=== PATIENT | male | born 1980 | race Caucasian/White ===

== ENCOUNTER 2025-05-18 18:37 | Emergency (ER) | payer MEDICAID ==
[~2025-05-18] VITALS: Ht 177.8 cm; Wt 91.0 kg
[~2025-05-18 18:37] MED LIST: LEVE1000 MT; PANT40TA51 PO
[2025-05-18 18:44] VITALS: O2SAT 100
[2025-05-18] MEDS: LEVETIRACETAM 500MG PREMIX 100 ML IV ONE (19:16)
[2025-05-18] MEDS: LORAZEPAM 2MG/ML UD SYRINGE IV NR (20:03)
[2025-05-18 20:08] VITALS: TEMP 37
[2025-05-18 20:13] LABS: BASOPHILS % 0.7 % (0.0-2.0); EOSINOPHILS % 3.4 % (0.0-5.0); HEMATOCRIT. 39.0 % (42.0-52.0); HEMOGLOBIN. 12.9 g/dL (14.0-18.0); LYMPHOCYTES % 19.6 % (20.0-50.0); MEAN PLATELET VOLUME 7.3 fl (7.4-10.4); MONOCYTES % 8.7 % (2.0-8.0); NEUTROPHILS % 67.6 % (40.0-76.0); PLATELET 223 x1000/uL (130-400); RED BLOOD CELL COUNT 4.84 mill/uL (4.7-6.1); RED CELL DISTRIBUTION WIDTH 14.2 % (11.6-14.6)
[2025-05-18 20:28] LABS: CREATININE 0.9 mg/dL (0.6-1.3); UREA NITROGEN BLOOD 7 mg/dL (9-23)
[2025-05-18 20:29] LABS: ETHANOL BLOOD < 10 mg/dL (<10); PROTEIN TOTAL 6.5 g/dL (6.0-8.3)
[2025-05-18 20:30] LABS: ASPARTATE AMINOTRANSFERASE 11 IU/L (<34); BILIRUBIN DIRECT < 0.1 mg/dL (<=3.0); BILIRUBIN TOTAL 0.4 mg/dL (0.1-1.0)
[2025-05-19 01:57] VITALS: BP 120/84; PULSE 76; RESP 14; O2SAT 99
== END 2025-05-19 02:47 ==
LOC: ER 18:37
DX: R56.9 Unspecified convulsions (principal); Z86.73 Personal history of transient ischemic attack (TIA), and cerebral infarction without residual deficits; Z88.0 Allergy status to penicillin; Z88.1 Allergy status to other antibiotic agents
CPT/HCPCS: 80076; 80048; 80320; 85025; 36415; 70450; 96365; 96375; 99291; 93005; J1953; J2060; G0480

== ENCOUNTER 2025-05-27 11:36 | Emergency (ER) | payer MEDICAID ==
[~2025-05-27] VITALS: Ht 180.3 cm; Wt 91.0 kg
[~2025-05-27 11:36] MED LIST changes: -PANT40TA51 PO
[2025-05-27 11:40] VITALS: O2SAT 99
[2025-05-27] MEDS: LEVETIRACETAM 500MG PREMIX 100 ML IV ONE (12:19)
[2025-05-27 12:25] LABS: BASOPHILS % 0.7 % (0.0-2.0); EOSINOPHILS % 3.9 % (0.0-5.0); HEMATOCRIT. 39.8 % (42.0-52.0); HEMOGLOBIN. 13.7 g/dL (14.0-18.0); LYMPHOCYTES % 25.3 % (20.0-50.0); MEAN PLATELET VOLUME 7.1 fl (7.4-10.4); MONOCYTES % 11.0 % (2.0-8.0); NEUTROPHILS % 59.1 % (40.0-76.0); PLATELET 228 x1000/uL (130-400); RED BLOOD CELL COUNT 5.06 mill/uL (4.7-6.1); RED CELL DISTRIBUTION WIDTH 14.7 % (11.6-14.6)
[2025-05-27 12:40] LABS: CREATININE 0.9 mg/dL (0.6-1.3); UREA NITROGEN BLOOD 14 mg/dL (9-23)
[2025-05-27 12:41] LABS: ETHANOL BLOOD < 10 mg/dL (<10)
[2025-05-27] MEDS ORDERED: KEPP500 MT (14:00)
[2025-05-27] MEDS: LEVETIRACETAM 500MG TABLET PO NR (14:44)
[2025-05-27 19:30] VITALS: BP 118/70; PULSE 94; RESP 15; TEMP 36.8; O2SAT 100
[2025-05-30] MEDS ORDERED: PANT40TA51 PO (15:12)
== END 2025-05-27 19:29 | disposition home or self-care (01) ==
LOC: ER 11:36
DX: G40.909 Epilepsy, unspecified, not intractable, without status epilepticus (principal); J45.909 Unspecified asthma, uncomplicated; Z59.00 Homelessness unspecified; Z99.3 Dependence on wheelchair; Z88.1 Allergy status to other antibiotic agents; Z88.0 Allergy status to penicillin
CPT/HCPCS: 80048; 80320; 85025; 36415; 96365; 99284; J1953; G0480

== ENCOUNTER 2025-05-28 01:56 | Emergency (ER) | payer MEDICAID ==
[~2025-05-28] VITALS: Ht 177.8 cm; Wt 81.0 kg
[~2025-05-28 01:56] MED LIST changes: +KEPP500 MT
[2025-05-28 01:59] VITALS: O2SAT 100
[2025-05-28] MEDS: LEVETIRACETAM 1000MG PREMIX 100 ML IV ONE (03:03)
[2025-05-28 07:38] VITALS: BP 107/67; PULSE 64; RESP 12; TEMP 36.8; O2SAT 96
[2025-05-30] MEDS ORDERED: PANT40TA51 PO (15:12)
== END 2025-05-28 08:03 ==
LOC: ER 01:56
DX: R56.9 Unspecified convulsions (principal); J45.909 Unspecified asthma, uncomplicated; Z88.0 Allergy status to penicillin; Z88.1 Allergy status to other antibiotic agents
CPT/HCPCS: 99284; 96374; J1953

== ENCOUNTER 2025-05-31 18:03 | Emergency (ER) | payer MEDICAID ==
[~2025-05-31] VITALS: Ht 177.8 cm; Wt 91.0 kg
[~2025-05-31 18:03] MED LIST changes: -KEPP500 MT; +PANT40TA51 PO
[2025-05-31 18:07] VITALS: O2SAT 99
[2025-05-31 18:51] LABS: BASOPHILS % 0.4 % (0.0-2.0); EOSINOPHILS % 4.6 % (0.0-5.0); HEMATOCRIT. 39.4 % (42.0-52.0); HEMOGLOBIN. 13.1 g/dL (14.0-18.0); LYMPHOCYTES % 17.3 % (20.0-50.0); MEAN PLATELET VOLUME 7.2 fl (7.4-10.4); MONOCYTES % 12.0 % (2.0-8.0); NEUTROPHILS % 65.7 % (40.0-76.0); PLATELET 218 x1000/uL (130-400); RED BLOOD CELL COUNT 4.93 mill/uL (4.7-6.1); RED CELL DISTRIBUTION WIDTH 14.3 % (11.6-14.6)
[2025-05-31] MEDS: LEVETIRACETAM 1000MG PREMIX 100 ML IV ONE (18:58)
[2025-05-31 19:09] LABS: CREATININE 1.0 mg/dL (0.6-1.3); ETHANOL BLOOD < 10 mg/dL (<10); UREA NITROGEN BLOOD 11 mg/dL (9-23)
[2025-05-31 20:38] LABS: CLARITY URINE CLEAR (CLEAR); COLOR URINE YELLOW (YELLOW); GLUCOSE URINE NEGATIVE (NEGATIVE); KETONES URINE NEGATIVE (NEGATIVE); LEUKOCYTE ESTERASE URINE NEGATIVE (NEGATIVE); NITRITE URINE NEGATIVE (NEGATIVE); OCCULT BLOOD URINE NEGATIVE (NEGATIVE); PH URINE 6.0 (4.5-8.0); PROTEIN URINE NEGATIVE (NEGATIVE); SPECIFIC GRAVITY URINE 1.022 (1.005-1.030); UROBILINOGEN URINE 0.2 E.U./dL (0.2-1.0)
[2025-05-31 20:43] LABS: *AMPHETAMINES SCREEN URINE NEGATIVE (NEGATIVE); *BARBITURATES SCREEN URINE NEGATIVE (NEGATIVE); *BENZODIAZEPINES SCREEN URINE NEGATIVE (NEGATIVE); *COCAINE SCREEN URINE NEGATIVE (NEGATIVE); METHADONE URINE SCREEN NEGATIVE (NEGATIVE); OPIATES URINE SCREEN NEGATIVE (NEGATIVE)
[2025-05-31 20:44] LABS: CANNABINOID URINE SCREEN NEGATIVE (NEGATIVE); ECSTASY MDMA SCREEN URINE NEGATIVE (NEGATIVE); PHENCYCLIDINE URINE SCREEN NEGATIVE (NEGATIVE)
[2025-06-01 01:03] VITALS: BP 116/71; PULSE 74; RESP 16; TEMP 36.9; O2SAT 100
== END 2025-06-01 01:22 ==
LOC: ER 18:03
DX: G40.909 Epilepsy, unspecified, not intractable, without status epilepticus (principal); J45.909 Unspecified asthma, uncomplicated; Z88.0 Allergy status to penicillin; Z88.1 Allergy status to other antibiotic agents; Z79.899 Other long term (current) drug therapy
CPT/HCPCS: 80305; 80048; 81003; 80320; 85025; 36415; 93005; 96365; 99284; J1953; G0480

== ENCOUNTER 2025-06-02 11:26 | Emergency (ER) | payer MEDICAID ==
[~2025-06-02] VITALS: Ht 172.7 cm; Wt 80.0 kg
[2025-06-02 11:31] VITALS: TEMP 98.4; O2SAT 99
[2025-06-02 14:46] LABS: BASOPHILS % 0.9 % (0.0-2.0); EOSINOPHILS % 8.2 % (0.0-5.0); HEMATOCRIT. 36.9 % (42.0-52.0); HEMOGLOBIN. 12.5 g/dL (14.0-18.0); LYMPHOCYTES % 37.3 % (20.0-50.0); MEAN PLATELET VOLUME 8.5 fl (7.4-10.4); MONOCYTES % 12.4 % (2.0-8.0); NEUTROPHILS % 41.2 % (40.0-76.0); PLATELET 213 x1000/uL (130-400); RED BLOOD CELL COUNT 4.61 mill/uL (4.7-6.1); RED CELL DISTRIBUTION WIDTH 14.5 % (11.6-14.6)
[2025-06-02 15:03] LABS: CREATININE 1.0 mg/dL (0.6-1.3); PROTEIN TOTAL 6.4 g/dL (6.0-8.3); UREA NITROGEN BLOOD 15 mg/dL (9-23)
[2025-06-02 15:05] LABS: ASPARTATE AMINOTRANSFERASE 15 IU/L (<34); BILIRUBIN TOTAL 0.3 mg/dL (0.1-1.0)
[2025-06-02] MEDS ORDERED: LEVETIRACETAM 500MG PREMIX 100 ML IV SCH (18:00)
[2025-06-02] MEDS: LEVETIRACETAM 1500MG PREMIX 100 ML IV SCH (18:28)
[2025-06-02 23:23] VITALS: BP 115/83; PULSE 80; RESP 18; O2SAT 100
== END 2025-06-02 23:30 | disposition admitted as inpatient to this hospital (09) ==
LOC: ER 11:39 → CMPBEDREQ 06-03 07:58
DX: R56.9 Unspecified convulsions (principal); R41.82 Altered mental status, unspecified; I67.82 Cerebral ischemia; Z88.0 Allergy status to penicillin; Z88.1 Allergy status to other antibiotic agents
CPT/HCPCS: 99285; 96365; 70450; 80053; 85025; 93005; J1953; A4606

== ENCOUNTER 2025-06-07 13:49 | Emergency (ER) | payer MEDICAID ==
[~2025-06-07] VITALS: Ht 175.3 cm; Wt 77.0 kg
[2025-06-07 13:51] VITALS: O2SAT 100
[2025-06-07 16:02] LABS: CREATININE 0.9 mg/dL (0.6-1.3); UREA NITROGEN BLOOD 9 mg/dL (9-23)
[2025-06-07 16:03] LABS: PROTEIN TOTAL 6.7 g/dL (6.0-8.3); TROPONIN I HIGH SENSITIVITY < 4 ng/L (3.0-53)
[2025-06-07 16:04] LABS: ASPARTATE AMINOTRANSFERASE 18 IU/L (<34); BILIRUBIN DIRECT < 0.1 mg/dL (<=3.0); BILIRUBIN TOTAL 0.3 mg/dL (0.1-1.0)
[2025-06-07 17:00] VITALS: TEMP 36.9
[2025-06-07 17:28] LABS: BASOPHILS % 0.3 % (0.0-2.0); EOSINOPHILS % 2.0 % (0.0-5.0); HEMATOCRIT. 40.0 % (42.0-52.0); HEMOGLOBIN. 13.2 g/dL (14.0-18.0); LYMPHOCYTES % 12.8 % (20.0-50.0); MEAN PLATELET VOLUME 7.1 fl (7.4-10.4); MONOCYTES % 6.5 % (2.0-8.0); NEUTROPHILS % 78.4 % (40.0-76.0); PLATELET 241 x1000/uL (130-400); RED BLOOD CELL COUNT 4.99 mill/uL (4.7-6.1); RED CELL DISTRIBUTION WIDTH 14.4 % (11.6-14.6)
[2025-06-07 17:43] LABS: TROPONIN I HIGH SENSITIVITY < 4 ng/L (3.0-53)
[2025-06-08 00:08] VITALS: BP 136/81; PULSE 75; RESP 22; O2SAT 95
== END 2025-06-08 00:15 | disposition home or self-care (01) ==
LOC: ER 15:46
DX: R56.9 Unspecified convulsions (principal); E78.00 Pure hypercholesterolemia, unspecified; J45.909 Unspecified asthma, uncomplicated; Z88.0 Allergy status to penicillin; Z88.1 Allergy status to other antibiotic agents; Z86.73 Personal history of transient ischemic attack (TIA), and cerebral infarction without residual deficits
CPT/HCPCS: 80076; 80048; 82140; 85025; 84484; 36415; 71045; 70450; 99285; Z7610 ×2; A4606